=== PATIENT | male | born 1995 | race Two or more races ===

== ENCOUNTER 2020-03-07 08:35 | Emergency (ER) | payer SELFPAY ==
[~2020-03-07] VITALS: Ht 165.1 cm; Wt 96.6 kg
[2020-03-07 08:45] VITALS: BP 152/98
[2020-03-07] MEDS ORDERED: IPRATROPIUM BROM 0.5 MG/2.5ML INH SOL NEB ONE (09:00)
[2020-03-07] MEDS ORDERED: ALBUTEROL SULF 2.5 MG/0.5ML(0.5%) NEB SOLN NEB ONE (09:00)
== END 2020-03-07 09:35 | disposition home or self-care (01) ==
LOC: ER 08:35
DX: J45.21 Mild intermittent asthma with (acute) exacerbation (principal)
CPT/HCPCS: 71046; 94640; 99283; J7644

== ENCOUNTER 2021-11-20 22:49 | Emergency (ER) | payer MEDICAID, OTHER ==
[~2021-11-20] VITALS: Ht 167.6 cm; Wt 112.5 kg
[2021-11-20 22:49] VITALS: BP 143/86
== END 2021-11-21 03:00 | disposition left against medical advice (07) ==
LOC: ER 22:49
DX: R51.9 Headache, unspecified (principal); Z53.21 Procedure and treatment not carried out due to patient leaving prior to being seen by health care provider

== ENCOUNTER 2021-12-27 01:36 | Emergency (ER) | payer MEDICAID, OTHER ==
[~2021-12-27] VITALS: Ht 167.6 cm; Wt 111.1 kg
[2021-12-27 02:11] VITALS: BP 138/89
== END 2021-12-27 06:10 | disposition home or self-care (01) ==
LOC: ER 01:36
DX: S60.512A Abrasion of left hand, initial encounter (principal); F15.10 Other stimulant abuse, uncomplicated; J45.909 Unspecified asthma, uncomplicated; X58.XXXA Exposure to other specified factors, initial encounter; Y93.89 Activity, other specified; Y92.89 Other specified places as the place of occurrence of the external cause; Y99.8 Other external cause status